=== PATIENT | female | born 1980 | race Caucasian/White ===

== ENCOUNTER → 2016-11-10 | Outpatient (CLI) | payer OTHER ==
--- NOTE | 2016-11-10 09:49 | US ---
EXAMINATION TYPE: US transvaginal DATE OF EXAM: 11/10/2016 9:27 AM COMPARISON: Prior pelvic ultrasound October 07, 2012. CLINICAL HISTORY: R10.32 LLQ Pain. Painful menses, hx of TECHNIQUE: Transvaginal (TV) pelvic ultrasound Date of LMP: 10/13/2016 EXAM MEASUREMENTS: Uterus: 9.9 x 5.4 x 5.0 cm Endometrial Stripe: 0.8 cm Right Ovary: 2.9 x 1.2 x 1.1 cm Left Ovary: 3.3 x 1.8 x 1.9 cm TECHNOLOGIST IMPRESSION: 1. Uterus: heterogenous, anteverted 2. Endometrium: wnl 3. Right Ovary: wnl 4. Left Ovary: Tiny follicle is suspected in periphery of left ovary. In the opposite periphery ther e is somewhat poorly defined 1.7 cm hyperechoic area marked by technologist could reflect small hemor rhagic cyst. Consider short-term follow-up. 5. Bilateral Adnexa: wnl 6. Posterior cul-de-sac: no free fluid Cervix- Nabothian cysts IMPRESSION: Possible 1.7 cm nonsimple cyst left ovary favor hemorrhagic cyst, consider short-term ult rasound follow-up in 6 weeks' time.
== END | disposition home or self-care (01) ==
LOC: RADUSWWP 08:58
PROVIDERS: ATTEND Family Medicine
DX: R10.32 Left lower quadrant pain (principal)
CPT/HCPCS: 76830

== ENCOUNTER → 2017-01-08 | Outpatient (CLI) | payer OTHER ==
--- NOTE | 2017-01-08 11:31 | US ---
EXAMINATION TYPE: US transvaginal DATE OF EXAM: 01/08/2017 8:49 AM COMPARISON: Previous study dated 11/10/2016 CLINICAL HISTORY: R10.2 Pel Pain,N92.1 Menorrhagia w/irregular cycle. Follow up left pelvic pain TECHNIQUE: Transvaginal (TV) Date of LMP: 01/03/2017 EXAM MEASUREMENTS: Uterus: 9.3 x 5.9 x 4.5cm Endometrial Stripe: 0.7 cm Right Ovary: 3.1 x 2.8 x 1.6 cm Left Ovary: 2.7 x 1.8 x 2.0 cm 1. Uterus: Anteverted Couple of Nabothian cysts in CX - larger = 0.3 x 0.4 x 0.2cm 2. Endometrium: 0.7cm, Thickness wnl for day 6LMP. Multiple small hyperechoic foci within may repres ent blood products of menstrual cycle. 3. Right Ovary: simple follicular cyst = 1.6 x 1.2 x 1.2cm 4. Left Ovary: small solid mass isoechoic to ovarian tissue with peripheral colorflow = 1.2 x 1.0 x 1.0cm and may be involuting cyst; simple follicular cyst = 1.2 x 0.9 x 1.0cm. Spectral, color and waveform Doppler imaging shows good arterial and venous flow within the ovaries ; there is no evidence for ovarian torsion. 5. Bilateral Adnexa: wnl 6. Posterior cul-de-sac: wnl IMPRESSION: 1. NABOTHIAN CYSTS. 2. 1.6 CM CYST, RIGHT OVARY. 3. 1.2 CM SOLID-APPEARING MASS IN THE LEFT OVARY WITH PERIPHERAL FLOW. ONCE AGAIN, SHORT-TERM FOLLOW- UP WOULD BE RECOMMENDED.
== END ==
LOC: RADUSWWP 08:18
PROVIDERS: ATTEND Family Medicine
DX: N88.8 Other specified noninflammatory disorders of cervix uteri (principal); N83.201 Unspecified ovarian cyst, right side; N94.89 Other specified conditions associated with female genital organs and menstrual cycle
CPT/HCPCS: 76830